=== PATIENT | female | born 1975 | race Caucasian/White ===

== ENCOUNTER 2018-09-18 22:52 | Emergency (ER) | payer OTHER ==
[~2018-09-18] VITALS: Ht 152.4 cm; Wt 62.1 kg
--- NOTE | 2018-09-18 23:00 | NUR ---
PT CAME IN FOR C/O FACIAL PAIN, PLACED ON ER BED 5, SEEN AND EVAL DONE BY ER MD PATE, WITH ORDERS CARRIED OUT.
[2018-09-18 23:30] LABS: BASOPHILS % (AUTO) 0.4 % (0.0-2.0); HEMATOCRIT 39 % (33-45); HEMOGLOBIN 12.8 g/dL (11.5-14.8); LYMPHOCYTES # (AUTO) 1.5 /CMM (0.8-4.8); LYMPHOCYTES % (AUTO) 17.5 % (20.0-44.0); MEAN CORPUSCULAR HGB CONC 33 g/dl (31.0-36.0); MEAN CORPUSCULAR VOLUME 97 fL (82-100); MONOCYTES # (AUTO) 0.6 /CMM (0.1-1.30); MONOCYTES % (AUTO) 7.6 % (2.0-12.0); NEUTROPHILS # (AUTO) 6.1 /CMM (1.8-8.9); NEUTROPHILS % (AUTO) 72.5 % (43.0-81.0); PLATELET COUNT (AUTO) 206 /CMM (150-450); WHITE BLOOD COUNT (AUTO) 8.4 K/uL (4.3-11.0)
[2018-09-18] MEDS ORDERED: CLINDAMYCIN 600 MG in IV D5W 100 ML IV ONE (23:30)
[2018-09-18] MEDS ORDERED: CLINDAMYCIN 900 MG/6 ML VIAL ONE (23:34)
[2018-09-18 23:49] LABS: CREATININE 0.7 mg/dL (0.6-1.3)
[2018-09-19] MEDS ORDERED: CT SWABBABLE VALVE TRANS SET 1 EA INFUS.SET MC ONE (00:09)
[2018-09-19] MEDS ORDERED: IOHEXOL-350 100 ML VIAL IV ONE (00:09)
[2018-09-19] MEDS ORDERED: IV NS 0.9% 250 ML IV ONE (00:10)
--- NOTE | 2018-09-19 00:49 | NUR ---
PT TAKEN TO CT
--- NOTE | 2018-09-19 02:20 | NUR ---
Patient discharged to home in stable condition. Rx given. Written and verbal after care instructions given. Patient verbalizes understanding of instruction.
[2018-09-19 02:22] VITALS: BP 119/79
== END 2018-09-19 02:23 | disposition home or self-care (01) ==
LOC: ER 23:14
DX: L03.211 Cellulitis of face (principal); K02.9 Dental caries, unspecified; R51 Headache; F10.10 Alcohol abuse, uncomplicated; F17.200 Nicotine dependence, unspecified, uncomplicated; Y90.9 Presence of alcohol in blood, level not specified; Z88.0 Allergy status to penicillin
CPT/HCPCS: 36415; 70487-TC; 80048-TC; 84702-TC; 85025-TC; J3490; J7030; J7050; J7060; Q9967

== ENCOUNTER 2018-09-20 17:18 | Emergency (ER) | payer OTHER ==
[~2018-09-20] VITALS: Ht 165.1 cm; Wt 62.6 kg
--- NOTE | 2018-09-20 17:40 | NUR ---
PT BIB SELF, C/O POSS ALLERGIC RXN FROM [facility] FOR CELLULITIS - C/O RASH GROIN VIVIAN ARMS X 1 DAY , ITCHING DENIES SOB. ALERT AND ORIENTED X 4, VERBALLY RESPONSIVE AND ABLE TO MAKE NEEDS KNOWN. ON ROOM AIR, BREATHING EVENLY AND UNLABORED. CONNECTED TO THE MONITOR, KEPT COMFROTABLE. WILL CONTINUE TO MONITOR ACCORDINGLY.
[2018-09-20] MEDS ORDERED: diphenhydrAMINE HCL 50 MG CAPSULE PO ONE (18:00)
[2018-09-20] MEDS ORDERED: FAMOTIDINE (20 MG) 20 MG TABLET PO ONE (18:00)
[2018-09-20] MEDS ORDERED: predniSONE 10 MG TABLET PO ONE (18:00)
[2018-09-20] MEDS ORDERED: FAMOTIDINE (20 MG) 20 MG TABLET ONE (18:11)
[2018-09-20] MEDS ORDERED: predniSONE 20 MG TABLET ONE (18:11)
[2018-09-20] MEDS ORDERED: diphenhydrAMINE HCL 50 MG CAPSULE ONE (18:11)
[2018-09-20] MEDS ORDERED: MORPHINE SULFATE INJ 2 MG/ML DISP.SYRIN IV ONE (18:30)
[2018-09-20] MEDS ORDERED: IV NS 0.9% 1,000 ML BAG IV ONE (18:30)
[2018-09-20] MEDS ORDERED: PANTOPRAZOLE 40 MG VIAL IV ONE (18:30)
[2018-09-20] MEDS ORDERED: ONDANSETRON HCL/PF 4 MG/2 ML VIAL IVP ONE (18:30)
[2018-09-20] MEDS ORDERED: ONDANSETRON HCL/PF 4 MG/2 ML VIAL ONE (18:39)
[2018-09-20] MEDS ORDERED: PANTOPRAZOLE 40 MG VIAL ONE (18:39)
[2018-09-20 18:42] LABS: BASOPHILS % (AUTO) 0.4 % (0.0-2.0); EOSINOPHILS % (AUTO) 2.8 % (0.0-6.0); HEMATOCRIT 42 % (33-45); LYMPHOCYTES # (AUTO) 1.2 /CMM (0.8-4.8); LYMPHOCYTES % (AUTO) 15.9 % (20.0-44.0); MEAN CORPUSCULAR HGB CONC 33 g/dl (31.0-36.0); MEAN CORPUSCULAR VOLUME 97 fL (82-100); MONOCYTES # (AUTO) 0.4 /CMM (0.1-1.30); MONOCYTES % (AUTO) 5.3 % (2.0-12.0); NEUTROPHILS # (AUTO) 5.8 /CMM (1.8-8.9); NEUTROPHILS % (AUTO) 75.6 % (43.0-81.0); PLATELET COUNT (AUTO) 222 /CMM (150-450); RED BLOOD CELL COUNT(AUTO) 4.33 MIL/uL (4.0-5.2); WHITE BLOOD COUNT (AUTO) 7.6 K/uL (4.3-11.0)
[2018-09-20] MEDS ORDERED: TRAMADOL HCL 50 MG TABLET PO ONE (19:00)
[2018-09-20] MEDS ORDERED: TRAMADOL HCL 50 MG TABLET ONE (19:09)
[2018-09-20 19:22] LABS: CALCIUM, SERUM 8.3 mg/dL (8.5-10.1); CREATININE 0.6 mg/dL (0.6-1.3)
[2018-09-20 19:28] LABS: ALBUMIN 3.2 g/dL (3.4-5.0); BILIRUBIN,TOTAL 0.2 mg/dL (0.2-1.0); TOTAL PROTEIN, SERUM 6.4 g/dL (6.4-8.2)
[2018-09-20 19:45] VITALS: BP 124/78
[2018-09-20] MEDS ORDERED: HYDROMORPHONE 1 MG/1 ML DISP.SYRIN IV ONE (20:00)
[2018-09-20] MEDS ORDERED: HYDROMORPHONE INJ 0.5 MG/0.5 ML SYRINGE ONE (20:02)
--- NOTE | 2018-09-20 20:20 | NUR ---
IV removed. Catheter intact and site benign. Pressure and 4x4 applied to site. No bleeding noted.Patient discharged to home in stable condition. Written and verbal after care instructions given. Patient verbalizes understanding of instruction.
== END 2018-09-20 20:22 | disposition home or self-care (01) ==
LOC: ER 17:22
DX: T36.8X5A Adverse effect of other systemic antibiotics, initial encounter (principal); F17.210 Nicotine dependence, cigarettes, uncomplicated; K04.7 Periapical abscess without sinus; R10.13 Epigastric pain; R11.2 Nausea with vomiting, unspecified; Z88.0 Allergy status to penicillin; Y92.89 Other specified places as the place of occurrence of the external cause
CPT/HCPCS: 36415; 80048; 80076; 83690; 85025; 96361; 96374; 96375; 99284; 99406; A4606 ×2; C9113; J2405; J7030; J7512; Q0163; Z7610 ×2